=== PATIENT | female | born 1990 | race Caucasian/White ===

== ENCOUNTER 2018-06-08 02:39 | Emergency (ER) | payer OTHER ==
[~2018-06-08] VITALS: Ht 160 cm; Wt 115.7 kg
[~2018-06-08 02:39] MED LIST: ABILIFY15 MG; ACETAMINOPHEN-1 EAC1 PO; ACETASOL HC OTI10 M1 OT; ADVAIR 250-501 EACH IH; AMOXICILLIN500 M1 PO; AMOXICILLIN875 MG PO; BENADRYL25 MG PO; CARAFATE 1 GM TA1 G1 PO; CIPRO250 M1 PO; CIPRODEX OTIC7.5 ML OTIC; CLONAZEPAM 1 MG1 M1; DECONGESTANT NA15 ML NS; IBUPROFEN 800800 M1 PO; IBUPROFEN 800800 MG PO; LAMICTAL; OCELLA TABLET1 EACH PO; ONDANSETRON HCL4 M2 PO; PREDNISONE 20 M20 M1 PO; PREVACID 24HR15 MG PO; PRILOSEC 20 MG20 MG PO; PROAIR HFA8.5 GM; PROMETHAZINE-D120 ML PO; PROVENTIL HFA6.7 G1 INH; SINGULAIR 10 MG10 MG; TRINATE TABLET1 TAB PO; VENTOLIN HFA 1818 GM INH; VITAMIN D 5050000 I1; XANAX 1 MG TABLE1 MG PO; XOPENEX 0.63 MG/3 ML IH; ZOFRAN ODT4 MG SUBLING; ZOLOFT50 MG PO
[2018-06-08 03:11] LABS: ABSOLUTE BASOPHILS 0.1 thou/uL (0.0-0.2); ABSOLUTE EOSINOPHILS 0.4 thou/uL (0.0-0.7); ABSOLUTE LYMPHOCYTES 1.6 thou/uL (0.8-5.3); ABSOLUTE MONOCYTES 0.4 thou/uL (0.0-1.2); ABSOLUTE NEUTROPHILS 5.2 thou/uL (1.6-8.1); BASOPHILS 0.8 %; EOSINOPHILS 5.2 %; HEMATOCRIT 42.3 % (37.0-47.0); HEMOGLOBIN 14.3 gm/dL (12.0-15.0); LYMPHOCYTES 20.2 %; MCH 28.8 pg (26.0-34.0); MCHC 33.9 g/dL (28.0-37.0); MCV 84.9 fL (80.0-100.0); MONOCYTES 5.6 %; MPV 7.6 fl. (7.2-11.1); NUCLEATED RBCS 0 /100WBC; PLATELET COUNT* 321 thou/uL (150-400); POLYS 68.2 %; RBC 4.99 mil/uL (4.20-5.00); RDW-CV 13.1 % (10.5-14.5); WBC 7.7 thou/uL (4.0-11.0)
[2018-06-08 03:26] LABS: CALCIUM 8.9 mg/dL (8.5-10.1); CREATININE 0.8 mg/dL (0.6-1.3); POTASSIUM 4.2 mmol/L (3.5-5.1)
[2018-06-08 03:31] LABS: ALBUMIN 3.8 g/dL (3.4-5.0); TOTAL BILIRUBIN 0.3 mg/dL (<0.1-1.0); TOTAL PROTEIN 7.9 g/dL (6.4-8.2)
[2018-06-08] MEDS ORDERED: ZOFRAN ODT4 MG DISSOLVE (05:03)
[2018-06-08] MEDS ORDERED: HYDROCODONE-AP1 EAC6 PO (05:03)
[2018-06-08 05:19] VITALS: BP 111/64
== END 2018-06-08 05:21 | disposition home or self-care (01) ==
LOC: M.ERS 02:39
PROVIDERS: Emergency Medicine Emergency Medical Services
DX: K52.9 Noninfective gastroenteritis and colitis, unspecified (principal); J45.909 Unspecified asthma, uncomplicated; F41.9 Anxiety disorder, unspecified; F32.9 Major depressive disorder, single episode, unspecified